=== PATIENT | female | born 2005 | race Caucasian/White ===

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

== ENCOUNTER 2023-01-02 08:19 | Emergency (ER) | payer BC, SELFPAY ==
[2023-01-02 08:26] VITALS: BP 124/87; PULSE 80; RESP 18; TEMP 36.2; O2SAT 97; BMI 31.2
--- NOTE | 2023-01-02 08:47 | ED_ITS ---
HPI - General Adult General Date Seen: 01/02/23 Chief complaint: Allergic Reaction Stated complaint: allergic reaction,rash on skin,shortness of breath Time Seen by Provider: 01/02/23 08:33 Source: patient Mode of arrival: ambulatory Limitations: no limitations History of Present Illness HPI narrative: patient is a 17-year-old here for evaluation of hives. The started night before last. She has them all over her body and they have been persistent. She was seen yesterday in Urgent Care was started on prednisone, it sounds like 40 mg a day for 5 or 7 days, she is not sure. She was also advised to take Benadryl, which she has been taking, 25 mg at a time. She says she is so itchy still that she can not sleep. She does not have any respiratory symptoms specifically. She does have underlying asthma but has not been wheezy. She has not had any facial swelling. She is not aware of any new exposure to anything. She was sick earlier in the month with a vomiting illness but she has recovered and has not had any other viral symptoms. No new medications, foods, no new tattoos. She has never had hives before. She did buy some extra-strength hydrocortisone to use topically but that does not provide any relief from the itching. 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 Denies tobacco or significant other substance use. Here today with dad. Related Data Previous Rx's Medication Instructions Recorded prednisone 20 mg tablet 20 mg PO BID 7 days #14 tabs 01/01/23 Allergies Allergy/AdvReac Type Severity Reaction Status Date / Time cefdinir [From Omnicef] Allergy Mild Hives Verified 01/02/23 08:26 Review of Systems Status of ROS: Reports: 6 or more systems reviewed and unremarkable except as noted in History and below [facility] Medical History Cough ?R05.9 - Cough, unspecified (ICD-10) Hives ?L50.9 - Urticaria, unspecified (ICD-10) Social History Smoking Status: Never smoker Do you use any of these nicotine containing products: None How often do you have a drink containing alcohol: monthly or less How many standard drinks containing alcohol do you have on a typical day: 1 or 2 How often do you have six or more drinks on one occasion: Never AUDIT-C Alcohol total score: 1 Non-prescribed substance use: denies use service: No Exam Narrative: Exam Narrative: Vital signs as noted above. In general, an alert, well-appearing patient. Voice is normal. Head: Normocephalic, atraumatic. Eyes: Pupils are equal reactive. Extraocular movements are full. Conjunctivae are normal. ENT: Mucous membranes are moist. Throat is normal. Neck: Supple without lymphadenopathy. No stridor. Heart: Regular rate and rhythm. No murmur or rub. Lungs: Clear bilaterally. No increased work of breathing, crackles or wheezes. Abdomen: Soft and nontender. No organomegaly. Extremities: Well perfused. No edema. No calf tenderness. Pulses intact. Neurologic: Patient is alert and oriented to person and place. Speech is fluent. Face is symmetric. Moves all extremities equally. Affect: Normal. Skin: Warm and dry. Well perfused. Diffusely scattered hives, some in large patches. legs seem to be most affected, followed by torso. Face not affected. No intraoral lesions. Palms and soles spared. Const: Vital Signs, click to edit/add: Vital Signs - 24 hr 01/02/23 08:26 01/02/23 09:08 Temperature 97.2 F L Pulse Rate [Pulse Oximeter] 80 78 Respiratory Rate 18 18 Blood Pressure [Ri ght Upper Arm] 124/87 106/73 Pulse Oximetry 97 98 Oxygen Delivery Me thod Room Air Documenting provider has reviewed patient's vital signs: yes Course Course Hospital Course: Given how problematic her rashes from a symptomatic standpoint and the fact that she is not having good relief with prednisone and Benadryl, I am going to give her an epi shot here. Discussed with her that that likely will help, but results be short-lived and hives may return. She still interested in trying that as if nothing else that might let her get a few hours of sleep. I would like her to stay on the prednisone, discussed that she can take 50 mg of Benadryl, also could try taking Zyrtec during the day and Benadryl at night if the Benadryl is sedating. We can also add an H2 david to her regimen. Discussed that the hives could be allergic, could also be viral or idiopathic, at this point I do not know for sure why she has hives. If they are persistent, I would recommend that she talk with her primary doctor as a referral to an perennial house manager might be needed at that time. Right now, I do not see any signs suggesting that this is a more severe anaphylactic reaction. She does not have any airway or breathing symptoms, and circulation is normal. I do not think she needs observation after the epinephrine as we are simply treating her hives. If symptoms change, if she develops blistering rash, fever, difficulty breathing, wheezing etcetera return to the emergency department. Otherwise follow-up as outlined above. Vital Signs Vital signs: Initial Vital Signs Temperature 97.2 F L 01/02/23 08:26 Temperature Source Temporal Artery Scan 01/02/23 08:26 Pulse Rate 80 01/02/23 08:26 Respiratory Rate 18 01/02/23 08:26 Blood Pressure 124/87 01/02/23 08:26 Blood Pressure Mean 99 01/02/23 08:26 Blood Pressure Position Sitting 01/02/23 08:26 Pulse Oximetry 97 01/02/23 08:26 Oxygen Delivery Method Room Air 01/02/23 08:26 Vital Signs Temperature 97.2 F L 01/02/23 08:26 Pulse Rate 80 01/02/23 08:26 Respiratory Rate 18 01/02/23 08:26 Blood Pressure 124/87 01/02/23 08:26 Pulse Oximetry 97 01/02/23 08:26 Oxygen Delivery Method Room Air 01/02/23 08:26 Temperature 97.2 F L 01/02/23 08:26 Pulse Rate 78 01/02/23 09:08 Respiratory Rate 18 01/02/23 09:08 Blood Pressure 106/73 01/02/23 09:08 Pulse Oximetry 98 01/02/23 09:08 Oxygen Delivery Method Room Air 01/02/23 08:26 Discharge Plan Discharge Clinical Impression: Hives Patient Disposition: Home, Self-Care Condition: Stable Instructions: Urticaria (ED) Additional Instructions: The reason for your hives is unclear at this time. Hives can be caused by allergies, but also can be caused by viruses, or sometimes can be idiopathic, ca use unknown. For now, we will try and help control the symptoms. Would recommend that you continue with Benadryl, 25-50 mg 3-4 times daily. You can use Zyrtec 10 mg in the morning if Benadryl is sedating, and take 50 mg of Benadryl at bedtime. Continue the prednisone. Can also add an H2 david like Pepcid, which is available [id number]. If symptoms are not resolving over the next few days, I would talk with your primary care doctor and make arrangements to see an perennial house manager. If things worsen and you develop a blistering rash, fever, swelling of your lips or tongue, wheezing, return to the emergency department. Prescriptions: No Action prednisone 20 mg tablet 20 mg PO BID 7 Days Qty: 14 0RF Follow Up/Referrals: May Acuna MD [Primary Care Provider] - Stand Alone Forms: [employer] Info Instructions
[2023-01-02] MEDS: EPINEPHrine 0.3 MG PEN IM (08:59)
[2023-01-02 09:08] VITALS: BP 106/73; PULSE 78; RESP 18; O2SAT 98
== END 2023-01-02 09:19 | disposition home or self-care (01) ==
PROVIDERS: Emergency Provider Emergency Medicine; PCP Pediatrics
DX: L50.9 Urticaria, unspecified (principal)
CPT/HCPCS: 96372; 99283; 99284; J0171

== ENCOUNTER 2023-04-02 15:54 | Emergency (ER) | payer BC, SELFPAY ==
[2023-04-02 15:58] VITALS: BP 122/76; PULSE 83; RESP 18; TEMP 37.1; O2SAT 97; BMI 30.2
--- NOTE | 2023-04-02 17:29 | CRLHL7_ITS ---
For Patients: As a result of the Century Cures Act, medical imaging exams and procedure reports are released immediately into your electronic medical record. You may view this report before your referring provider. If you have questions, please contact your health care provider. CLINICAL HISTORY: Syncope. TECHNIQUE: Standard helical CT image acquisition of the brain was performed. COMPARISON: None available. FINDINGS: There is no intracranial hemorrhage, extra-axial collection, mass effect, or midline shift. Monsivais-white matter differentiation is preserved. The ventricles are normal in size and morphology for patient age. The calvarium is unremarkable. The orbits are unremarkable. The paranasal sinuses are unremarkable. The mastoid air cells are unremarkable. IMPRESSION: No CT evidence of acute intracranial abnormality. Please note that all CT scans at this facility use dose modulation, iterative reconstruction, and/or weight-based dosing when appropriate to reduce radiation dose to as low as reasonably achievable. Dictated by Kris Dickey MD @ 04/02/2023 6:33:58 PM (Electronically Signed)
[2023-04-02 17:57] VITALS: BP 120/70; PULSE 68; RESP 16; TEMP 36.2; O2SAT 98
--- OUTSIDE RECORDS SUMMARY | 2023-04-02 17:59 | XMS_ITS | Continuity of Care Document ---
Author Name Unknown Organization [facility] Address [address] [place] [id number] Phone Care Team Providers Care Quality Compliance Manager Name Role Phone Zeus Queen Unavailable Unavailable Procedures Procedure Date Office/Outpatient Visit,New, Mod 2020 Office/Outpatient Visit,Est, Mod 2020 Advance Directives Directive Yes / No Effective Date File Name No Information Encounters Encounter Description Practice Location Reason(s) For Visit Diagnoses Date Provider Providers Copied on Encounter Office/Outpati ent Visit,[place], [facility] [facility] , [address], [place], [place], [id number], [place] tel:[phone] [facility] Low back pain Rishi Schulz. [address] [place] [address], [id number], . tel:[phone] Referring Provider: Zeus Blackwell D, [address] [place] [address], [id number]. tel:[phone] Family History Family Member Type Diagnosis Age At Onset No Information Payers Payer name Insurance type Covered republican ID Authorgoldena yawken(s) [place] [employer] [place] [id number] Social History Type Description Quantity Date Captured Comments Alcohol Use Details Unknown Caffeine Use Details Unknown Tobacco Use Status Current non-smoker Smoking Status Never smoker Non-Smoking Tobacco Use Details : No Details Available : No Details Available Sex Female Vital Signs Date / Time: Height Weight BMI Pulse Rate Blood Pressure Temperature Respiratory Rate Body Surface Area Head Circumference Head Circ. Percentile Wt./Aidan. Percentile BMI percentile Pulse Ox Inhaled Ox 3:01 PM 61.00 in 79.379 kg (175.00 lbs) 33.0 7 kg/m eter (2) 97 Chief Complaint And Reason For Visit No Information Reason For Referral Reason For Referral No Information Plan Of Treatment Date Type Action Status No Information History Of Present Illness Encounter Date Complaint History Of Prese nt Illness No Information Functional Status Date Functional Assessmen t No Information Instructions Date Instruction Additional Infor mation No Information Assessments Type Assessment Date assessment Low back pain Patient Care Teams Name Effective Dates (start - stop) Status Members No Information
--- OUTSIDE RECORDS SUMMARY | 2023-04-02 17:59 | XMS_ITS | Continuity of Care Document ---
Author Name Unknown Organization [facility] Address [address] [address] [place] [address] Phone Care Team Providers Care Baseball Sewer Hand Name Role Phone Unavailable Unavailable Unavailable Allergies, Adverse Reactions, Alerts Substance Reaction Status Criticality No Known allergies Medications Medication Instructions Dosage Effective Dates (start - stop) Status Comments GlycoLax 17 gram/dose Oral Powder Take 1/2 capful in 4 ounces of fluid every day - Active Procedures Procedure Date Offic Cons New/estab Mod- Advance Directives Directive Yes / No Effective Date File Name No Information Encounters Encounter Description Practice Location Reason(s) For Visit Diagnoses Date Provider Providers Copied on Encounter Offic Cons New/estab Mod- [facility], [address] [address], [place], [place], [id number], [place] tel:[phone] [facility] Constipation unspecified 6200 5 No Information Family History Family Member Type Diagnosis Age At Onset No Information Payers Payer name Insurance type Covered republican ID Authoriza tion(s) [employer] [facility] [id number] Social History Type Description Quantity Date Captured Comments Sex Female Smoking Status No Information Chief Complaint And Reason For Visit No Information Reason For Referral Reason For Referral No Information Plan Of Treatment Date Type Action Status No Information History Of Present Illness Encounter Date Complaint History Of Prese nt Illness No Information Functional Status Date Functional Assessmen t No Information Instructions Date Instruction Additional Infor mation No Information Assessments Type Assessment Date No Information Patient Care Teams Name Effective Dates (start - stop) Status Members No Information
[2023-04-02 18:03] LABS: Basophils Absolute Auto 0.04 K/uL (0.00-0.30); Basophils Percent Auto 0.6 % (0.0-3.0); Eosinophils Absolute Auto 0.12 K/uL (0.00-0.50); Eosinophils Percent Auto 1.7 % (0.0-7.0); Hematocrit 43.2 % (33.0-51.0); Hemoglobin* 14.8 gm/dL (12.0-16.0); Immature Granulocytes Abs Auto 0.01 K/uL (0.00-0.30); Immature Granulocytes Pct Auto 0.1 %; Lymphocytes Absolute Auto 2.33 K/uL (0.90-2.90); Lymphocytes Percent Auto 33.1 % (20-44); Mean Corpuscular HGB Conc 34 gm/dL (32-36); Mean Corpuscular Hemoglobin 32 pg (26-34); Mean Corpuscular Volume 94 fL (80-100); Monocytes Percent Auto 7.4 % (0.0-11.0); Neutrophils Absolute Auto 4.01 K/uL (1.7-7.0); Neutrophils Percent Auto 57.1 % (42.0-72.0); Platelet Count* 288 K/uL (140-440); RDW Coefficient of Variation % 12.6 % (11.5-15.5); Red Blood Count 4.59 m/uL (4.00-5.20); White Blood Count* 7.03 K/uL (4.50-11.00)
[2023-04-02 18:04] LABS: Slide Review Reflex No
[2023-04-02 18:18] LABS: Chloride* 104 mmol/L (96-114); Potassium* 3.9 mmol/L (3.6-5.1); Sodium* 138 mmol/L (135-149)
[2023-04-02 18:21] LABS: Blood Urea Nitrogen* 11 mg/dL (5-24); Carbon Dioxide* 24 mmol/L (20-32); Creatinine* 0.6 mg/dL (0.5-1.5); Est. Creatinine Clearance* 112.86; Estimated Glomerular Filt Rate 132 ml/min
[2023-04-02 18:22] LABS: Calcium* 9.3 mg/dL (8.4-10.6); Glucose* 88 mg/dL (60-115)
--- NOTE | 2023-04-02 18:50 | ED.GENADULT ---
HPI - General Adult General Date Seen: 04/02/23 Chief complaint: Weakness Stated complaint: Loss of vision, tingling in back of head Time Seen by Provider: 04/02/23 16:36 Source: patient Mode of arrival: ambulatory Limitations: no limitations History of Present Illness HPI narrative: Patient is a 18-year-old female who was at work. 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 She felt lightheaded and when she went to stand up she became more lightheaded. She did not actually pass out but felt like she could. Her vision got dark for a few seconds. He tells me that she has both fibromyalgia and an old spinal injury but has not required any treatment for either. She became sweaty after this episode. She has been eating and drinking well. No febrile illness. Related Data Previous Rx's Medication Instructions Recorded sulfamethoxazole 800 1 tab PO BID #20 tabs 03/02/23 mg-trimethoprim 160 mg tablet (Bactrim DS) Allergies Allergy/AdvReac Type Severity Reaction Status Date / Time cefdinir [From Omnicef] Allergy Mild Hives Verified 04/02/23 16:01 Review of Systems Narrative: Review of systems is outlined above otherwise noted to be negative. [facility] Medical History (Updated 04/02/23 @ 18:10 by Guido Latham MD) Ingrown nail of great toe ?L60.0 - Ingrowing nail (ICD-10) Hives ?L50.9 - Urticaria, unspecified (ICD-10) Cough ?R05.9 - Cough, unspecified (ICD-10) Social History Smoking Status: Never smoker Do you use any of these nicotine containing products: None How often do you have a drink containing alcohol: monthly or less How many standard drinks containing alcohol do you have on a typical day: 1 or 2 How often do you have six or more drinks on one occasion: Never AUDIT-C Alcohol total score: 1 Non-prescribed substance use: denies use service: No Exam Narrative: Exam Narrative: Vitals noted. HEENT: Conjunctiva clear. Tympanic membranes are pearly white bilaterally. Posterior pharynx is clear without erythema or exudate. Neck is supple without adenopathy, thyromegaly, carotid bruit. Lungs: Clear to auscultation in all longo. No wheezes, rales, rhonchi. Heart: Regular rate and rhythm without murmur. Abdomen: Soft and nontender. No guarding, rigidity, rebound. Bowel sounds are normal. No palpable masses. Extremities: No cyanosis or edema. Good distal pulses. She has myofascial tightness and tenderness of the left upper back. No palpable spasms. Cervical range of motion is full but there is some discomfort with side bending to the left. Skin: No abnormalities noted of the exposed skin. Neurologic: Awake, alert, fully oriented. Neurologic exam is nonfocal. Const: Vital Signs, click to edit/add: Vital Signs - 24 hr 04/02/23 15:58 04/02/23 17:57 Temperature 98.8 F 97.1 F L Pulse Rate [Right Pulse Oximeter] 83 68 Respiratory Rate 18 16 Blood Pressure [Ri ght Upper Arm] 122/76 120/70 Pulse Oximetry 97 98 Oxygen Delivery Me thod Room Air Room Air Course Course Hospital Course: Patient was seen and examined. Labs and a CT of her head are ordered. She denies a need for any pain medication. Reevaluation(s) Reevaluation #1: CBC, BMP are completely normal. CT of her head is also normal. Vital Signs Vital signs: Initial Vital Signs Temperature 98.8 F 04/02/23 15:58 Temperature Source Temporal Artery Scan 04/02/23 15:58 Pulse Rate 83 04/02/23 15:58 Pulse Rhythm Regular 04/02/23 15:58 Pulse Strength 3+ Normal 04/02/23 15:58 Respiratory Rate 18 04/02/23 15:58 Blood Pressure 122/76 04/02/23 15:58 Blood Pressure Mean 91 04/02/23 15:58 Blood Pressure Position Sitting 04/02/23 15:58 Pulse Oximetry 97 04/02/23 15:58 Oxygen Delivery Method Room Air 04/02/23 15:58 Vital Signs Temperature 98.8 F 04/02/23 15:58 Pulse Rate 83 04/02/23 15:58 Respiratory Rate 18 04/02/23 15:58 Blood Pressure 122/76 04/02/23 15:58 Pulse Oximetry 97 04/02/23 15:58 Oxygen Delivery Method Room Air 04/02/23 15:58 Temperature 97.1 F L 04/02/23 17:57 Pulse Rate 68 04/02/23 17:57 Respiratory Rate 16 04/02/23 17:57 Blood Pressure 120/70 04/02/23 17:57 Pulse Oximetry 98 04/02/23 17:57 Oxygen Delivery Method Room Air 04/02/23 17:57 Medical Decision Making Lab Data Labs: Lab Results 04/02/23 Range/Units 17:58 WBC 7.03 (4.50-11.00) K/uL RBC 4.59 (4.00-5.20) m/uL Hgb 14.8 (12.0-16.0) gm/dL Hct 43.2 (33.0-51.0) % MCV 94 (80-100) fL MCH 32 (26-34) pg MCHC 34 (32-36) gm/dL RDW Coeff of Denilson 12.6 (11.5-15.5) % Plt Count 288 (140-440) K/uL Neut % (Auto) 57.1 (42.0-72.0) % Lymph % (Auto) 33.1 (20-44) % [place] % (Auto) 7.4 (0.0-11.0) % Eos % (Auto) 1.7 (0.0-7.0) % Baso % (Auto) 0.6 (0.0-3.0) % Neut # (Auto) 4.01 (1.7-7.0) K/uL Lymph # (Auto) 2.33 (0.90-2.90) K/uL [place] # (Auto) 0.50 (0.00-0.90) K/UL Eos # (Auto) 0.12 (0.00-0.50) K/uL Baso # (Auto) 0.04 (0.00-0.30) K/uL Sodium 138 (135-149) mmol/L Potassium 3.9 (3.6-5.1) mmol/L Chloride 104 (96-114) mmol/L Carbon Dioxide 24 (20-32) mmol/L BUN 11 (5-24) mg/dL Creatinine 0.6 (0.5-1.5) mg/dL Estimated Creat Clear 112.86 Estimated GFR 132 ml/min Glucose 88 (60-115) mg/dL Calcium 9.3 (8.4-10.6) mg/dL Discharge Plan Discharge Clinical Impression: Muscle strain of left upper back, Postural dizziness with near syncope Patient Disposition: Home, Self-Care Condition: Improved Additional Instructions: Your labs are all reassuring. Stay hydrated. Stand up slowly. Follow up in the clinic if symptoms persist. Use ice, Ibuprofen, massage for your upper back. PT would also be an option if it persists. Activity Level: No Restrictions Discharge Diet: Regular Prescriptions: No Action sulfamethoxazole-trimethoprim [Bactrim DS] 800-160 mg tablet 1 tab PO BID Qty: 20 0RF Follow Up/Referrals: May Acuna MD [Primary Care Provider] - Stand Alone Forms: [facility] [employer] [facility] [employer] Info Instructions
== END 2023-04-02 18:34 | disposition home or self-care (01) ==
PROVIDERS: Emergency Provider Family Medicine; PCP Pediatrics
DX: S29.012A Strain of muscle and tendon of back wall of thorax, initial encounter (principal); R55 Syncope and collapse
CPT/HCPCS: 36415; 70450; 80048; 85025; 99282; 99284

== ENCOUNTER 2023-06-30 09:42 | Outpatient (CLI) | payer BC, SELFPAY ==
--- OUTSIDE RECORDS SUMMARY | 2023-06-30 09:44 | XMS_ITS | Continuity of Care Document ---
Author Name Unknown Organization [facility] Address [address] [place] [phone] Phone Care Team Providers Care Project Executive Name Role Phone Zeus Queen Unavailable Unavailable Procedures Procedure Date Office/Outpatient Visit,New, Mod 2020 Office/Outpatient Visit,Est, Mod 2020 Advance Directives Directive Yes / No Effective Date File Name No Information Encounters Encounter Description Practice Location Reason(s) For Visit Diagnoses Date Provider Providers Copied on Encounter Office/Outpati ent Visit,New, [facility] [place] [facility] , [address], [place], [place], [id number], [place] tel:[phone] [facility] Low back pain Rishi Schulz. [address] [place] [address], [id number], . tel:[phone] Referring Provider: Zeus Blackwell D, [address], [address]. tel:[phone] Family History Family Member Type Diagnosis Age At Onset No Information Payers Payer name Insurance type Covered alliance party ID Authorgoldena gerald(s) [employer] [employer] [place] [id number] Social History Type Description Quantity Date Captured [...] For Referral Reason For Referral No Information History Of Present Illness Encounter Date Complaint History Of Prese nt Illness No Information Functional Status Date Functional Assessmen t No Information Instructions Date Instruction Additional Infor mation No Information Assessments Type Assessment Date assessment Low back pain Patient Care Teams Name Effective Dates (start - stop) Status Members No Information
== END 2023-06-30 09:43 | disposition home or self-care (01) ==
LOC: INJ CL 09:42
PROVIDERS: PCP Pediatrics; Visit Provider Family Medicine
DX: M54.16 Radiculopathy, lumbar region (principal); M51.27 Other intervertebral disc displacement, lumbosacral region
CPT/HCPCS: 62323; J0702; Q9966

== ENCOUNTER 2024-01-04 14:39 | Emergency (ER) | payer BC, SELFPAY ==
[2024-01-04 14:49] VITALS: BP 106/68; PULSE 78; RESP 18; TEMP 36.5; O2SAT 98; BMI 27.8
--- NOTE | 2024-01-04 16:43 | ED_ITS ---
HPI - Back Pain/Injury General Time Seen by Provider: 16:43 Date Seen: 01/04/24 Chief Complaint: Back Injury/Pain Stated Complaint: Fall, back injury Time Seen by Provider: 01/04/24 16:43 Source: patient and RN notes reviewed Mode of arrival: ambulatory Limitations: no limitations History of Present Illness HPI Narrative: This 18-year-old female is coming in with concern of increasing left radiculopathic symptoms, left hip pain. 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 She states she has had epidural injection with Dr. Dickey here a few months ago. She accidentally slipped going back down the stairs at her home, missed the last 3-4 steps and landed on concrete at the base, landing on her buttock. She feels like the left hip is getting bruised, feels increased burning sensation down the back of the leg is also starting to feel that burning type sensation she associates with the nerve pain more on the side of the left leg and wrapping around into the groin. There is no numbness tingling. She has not noted any weakness but it is hurting to walk, she does feel like it hurts in the hip to walk as well. Nothing else was injured, no loss of consciousness. She will be losing her current insurance in a week, does know that she will get this figured out. No bowel or bladder changes. MD elicited complaint: back pain, back injury and fall Pertinent past history: prior back pain Related Data Previous Rx's Medication Instructions Recorded cyclobenzaprine 10 mg tablet 10 mg PO TID PRN muscle spasm #30 01/04/24 tabs prednisone 20 mg tablet 20 mg PO BID #10 tabs 01/04/24 Allergies Allergy/AdvReac Type Severity Reaction Status Date / Time cefdinir [From Omnicef] Allergy Mild Hives Verified 11/20/23 12:55 nickel Allergy Verified 11/20/23 12:55 sodium benzoate Allergy Verified 11/20/23 12:55 Review of Systems Narrative: As per HPI. [facility] Medical History (Updated 01/04/24 @ 18:14 by Zarina Randall MD) Ingrown nail of great toe ?L60.0 - Ingrowing nail (ICD-10) Hives ?L50.9 - Urticaria, unspecified (ICD-10) Cough ?R05.9 - Cough, unspecified (ICD-10) Social History Smoking Status: Never smoker Do you use any of these nicotine containing products: None How often do you have a drink containing alcohol: never How many standard drinks containing alcohol do you have on a typical day: 1 or 2 How often do you have six or more drinks on one occasion: Never AUDIT-C Alcohol total score: 0 Non-prescribed substance use: denies use service: No Exam Const: Vital Signs, click to edit/add: Vital Signs - 24 hr 01/04/24 14:49 Temperature 97.7 F Pulse Rate [Right Pulse Oximeter] 78 Respiratory Rate 18 Blood Pressure [Ri ght Upper Arm] 106/68 Pulse Oximetry 98 Oxygen Delivery Me thod Room Air Patient is alert, interactive, no apparent distress, lying in the exam bed in room 2. No midline tenderness over her spine, no SI joint tenderness. Has some mild tenderness when I palpate over the outside of the left hip, not necessarily over the greater trochanter, maybe is developing some subtle bruising. She has pain when I palpate in the sciatic notch in the left buttock area, see no traumatic changes. Strength is 5/5 and symmetric throughout her hip, lower extremities, ankles and feet. She has normal light touch sensation. She is able to easily get up off the bed, has good forward flexion and rotation of her spine. Do not appreciate any extensive pain on range of motion of her left hip but she does state it hurts to walk/stand on the left hip. Documenting provider has reviewed patient's vital signs: yes Course Course ED Course: Discussed with patient that certainly bruising can cause significant discomfort. She may have caused disc issues with the disc above her current 1, she had wondered that. We discussed starting with plain imaging since her exam is relatively benign, no concerning neurologic changes such as motor bowel/bladder. We will proceed with lumbar spine and left hip. She is in agreement with this. We will discuss medication management once I have seen her images and they have been read by Radiology. Reevaluation(s) Time of Reevaluation #1: 18:07 Reevaluation #1: Reviewed the negative x-rays with patient. She was aware she had some mild scoliosis. Will plan to discharge to home with follow-up with concerns or ongoing issues per Vital Signs Vital signs: Initial Vital Signs Temperature 97.7 F 01/04/24 14:49 Temperature Source Temporal Artery Scan 01/04/24 14:49 Pulse Rate 78 01/04/24 14:49 Respiratory Rate 18 01/04/24 14:49 Blood Pressure 106/68 01/04/24 14:49 Blood Pressure Mean 80 01/04/24 14:49 Blood Pressure Position Sitting 01/04/24 14:49 Pulse Oximetry 98 01/04/24 14:49 Oxygen Delivery Method Room Air 01/04/24 14:49 Vital Signs Temperature 97.7 F 01/04/24 14:49 Pulse Rate 78 01/04/24 14:49 Respiratory Rate 18 01/04/24 14:49 Blood Pressure 106/68 01/04/24 14:49 Pulse Oximetry 98 01/04/24 14:49 Oxygen Delivery Method Room Air 01/04/24 14:49 Temperature 97.7 F 01/04/24 14:49 Pulse Rate 78 01/04/24 14:49 Respiratory Rate 18 01/04/24 14:49 Blood Pressure 106/68 01/04/24 14:49 Pulse Oximetry 98 01/04/24 14:49 Oxygen Delivery Method Room Air 01/04/24 14:49 MDM - Back Pain/Injury Imaging Data XR left hip: Attestation: I have reviewed the pertinent imaging results. My impression: I do not appreciate any acute traumatic change on this pelvis or left hip maikol rain radiology over read. Radiologist's impression: Patient: SELINA MAGAÑA Facility:?[facility] Patient ID:?[id number] Site Patient ID:?[id number]. Site :?2003 Study:?XRay Hip Left W/PELVIS-01/04/2024 5:33:31 PM Ordering Physician:?DAMIEN Final Report: INDICATION: Trauma. TECHNIQUE: Left hip and pelvis radiographs, 3 views. COMPARISON: None. FINDINGS: No acute fractures or dislocation. The femoral heads maintain normal sphericity. There are normal anatomic alignment with the acetabulum bilaterally. The acetabulum appear unremarkable. No diastasis of the pubic symphysis. Moderate rectal stool burden. The joint spaces are preserved. No significant joint effusion. No significant soft tissue edema or radiopaque foreign bodies. IMPRESSION: No acute fractures or dislocation. Dictated by José Miguel Lee MD @ 01/04/2024 6:00:31 PM (Electronic Signature) XR lumbar spine: Attestation: I have reviewed the pertinent imaging results. My impression: Can see some mild curvature, no acute traumatic change seen, await radiology reading. Radiologist's impression: Patient: SELINA MAGAÑA Facility:?[facility] Patient ID:?[id number] Site Patient ID:?[id number] Site :?2003 Study:?XRay Spine Lumbar 3V-01/04/2024 5:34:37 PM Ordering Physician:CHANI Final Report: INDICATION: Trauma. TECHNIQUE: Lumbar spine radiographs, 3 views. COMPARISON: None. FINDINGS: Normal lumbar lordosis. Mild levoscoliosis of the mid lumbar spine. The vertebral body heights are maintained. The intervertebral disc spaces are preserved. No acute fractures or traumatic subluxation of the lumbar spine. Minimal facet degeneration at L4-5 and L5-S1. Unremarkable bowel gas pattern. The visualized sacroiliac joints are unremarkable. IMPRESSION: No acute fractures or traumatic subluxation of the lumbar spine. Dictated by José Miguel Lee MD @ 01/04/2024 6:03:40 PM (Electronic Signature) Critical Care Time Critical Care Time Critical Care Time: No Discharge Plan Discharge Clinical Impression: Lumbar radiculopathy, Acute pain of left hip Fall Qualifiers: Encounter type: initial encounter Qualified Code(s): W19.XXXA - Unspecified fall, initial encounter Patient Disposition: Home, Self-Care Condition: Stable Instructions: Acute Low Back Pain (ED), Lumbar Radiculopathy (ED), Hip Pain (ED) Additional Instructions: Continue with conservative management with ice the next couple days, can move to ice heat cycles after that. Tylenol and ibuprofen per bottle directions baseline for pain management. We will send in a prescription of prednisone to be used if you feel that the lumbar radiculopathy is worsening. Will also send in prescription for muscle relaxant to be used as needed, do not recommend driving or operating machinery if it does make you sedated. Follow-up with Dr Dickey if you have ongoing issues. Activity Level: Activity as Tolerated Prescriptions: New prednisone 20 mg tablet 20 mg PO BID Qty: 10 0RF cyclobenzaprine 10 mg tablet 10 mg PO TID PRN (Reason: muscle spasm) Qty: 30 0RF Follow Up/Referrals: May Acuna MD [Primary Care Provider] - Stand Alone Forms: [facility] Info Instructions
--- NOTE | 2024-01-04 16:56 | XR_ITS ---
Patient: SELINA MAGAÑA Facility:?[facility] Patient ID:?[id number] Site Patient ID:?[id number] Site :?2003 Study:?XRay-Spine Lumbar 3V-01/04/2024 5:34:37 PM Ordering Physician:CHANI Final Report: INDICATION: Trauma. TECHNIQUE: Lumbar spine radiographs, 3 views. COMPARISON: None. FINDINGS: Normal lumbar lordosis. Mild levoscoliosis of the mid lumbar spine. The vertebral body heights are maintained. The intervertebral disc spaces are preserved. No acute fractures or traumatic subluxation of the lumbar spine. Minimal facet degeneration at L4-5 and L5-S1. Unremarkable bowel gas pattern. The visualized sacroiliac joints are unremarkable. IMPRESSION: No acute fractures or traumatic subluxation of the lumbar spine. Dictated by José Miguel Lee MD @ 01/04/2024 6:03:40 PM Signed by:?José Miguel Lee MD @01/04/2024 6:03:40 PM (Electronic Signature)
--- NOTE | 2024-01-04 16:56 | XR_ITS ---
Patient: SELINA MAGAÑA Facility:?[facility] Patient ID:?[id number] Site Patient ID:?[id number]. Site :?2003 Study:?XRay-Hip Left W/PELVIS-01/04/2024 5:33:31 PM Ordering Physician:CHANI Final Report: INDICATION: Trauma. TECHNIQUE: Left hip and pelvis radiographs, 3 views. COMPARISON: None. FINDINGS: No acute fractures or dislocation. The femoral heads maintain normal sphericity. There are normal anatomic alignment with the acetabulum bilaterally. The acetabulum appear unremarkable. No diastasis of the pubic symphysis. Moderate rectal stool burden. The joint spaces are preserved. No significant joint effusion. No significant soft tissue edema or radiopaque foreign bodies. IMPRESSION: No acute fractures or dislocation. Dictated by José Miguel Lee MD @ 01/04/2024 6:00:31 PM Signed by:?José Miguel Lee MD @01/04/2024 6:00:31 PM (Electronic Signature)
== END 2024-01-04 18:21 | disposition home or self-care (01) ==
PROVIDERS: Emergency Provider Family Medicine; PCP Pediatrics
DX: M54.16 Radiculopathy, lumbar region (principal); W10.9XXA Fall (on) (from) unspecified stairs and steps, initial encounter
CPT/HCPCS: 72100; 73502; 99283

== ENCOUNTER 2024-03-06 12:01 | Emergency (ER) | payer BC, SELFPAY ==
[2024-03-06 12:17] VITALS: BP 115/71; PULSE 69; RESP 18; TEMP 36.6; O2SAT 98; BMI 27.4
--- NOTE | 2024-03-06 12:21 | ED.GENADULT ---
HPI - General Adult General Date Seen: 03/06/24 Chief complaint: Abdominal Pain Stated complaint: UTI, vomiting Time Seen by Provider: 03/06/24 12:16 History of Present Illness HPI narrative: 19-year-old female with a history of left hip pain (possibly radiculopathy), previous history of hives, presenting to the ER today for nausea and vomiting, dysuria and urinary urgency. She notes that she has had symptoms of dysuria and urgency for about a month or so. They have been waxing and waning. She has been trying to treat them at home with azo and with cranberry. However they keep coming back. They are more prevalent this morning. Also today she has had several episodes of nonbilious, nonbloody vomiting. She is not sure if the vomiting is because she did have 2 alcoholic beverages yesterday and the hangover or if this issue related to some sort of worsening infection. She is not having any fever. No diarrhea. No flank pain. No abdominal pain but she felt slightly bloated before she vomited. She does not think she is . Her last menstrual cycle was about 3 and half weeks ago. . Has historically been a bit irregular. She is not currently having any bleeding. She is sexually active but uses condoms for protection. She has 1 partner, male. He it does not know of any STDs, but she notes that sometimes min may have an STD with no symptoms. She does not have any specific concerned that she may have an STD but wonders if it is possible her boyfriend might have unknowingly given her chlamydia. She is not having any discharge. No vaginal blisters that she is aware of. Related Data Previous Rx's ?Medication ?Instructions ?Recorded cyclobenzaprine 10 mg tablet 10 mg PO TID PRN muscle spasm #30 01/04/24 tabs prednisone 20 mg tablet 20 mg PO BID #10 tabs 01/04/24 nitrofurantoin 100 mg PO BID #6 caps 03/06/24 monohydrate/macrocrystals 100 mg capsule (Macrobid) ondansetron HCl 4 mg tablet 4 mg PO Q8H PRN nausea and 03/06/24 vomiting #10 tabs Allergies Allergy/AdvReac Type Severity Reaction Status Date / Time cefdinir [From Omnicef] Allergy Mild Hives Verified 11/20/23 12:55 nickel Allergy Verified 11/20/23 12:55 sodium benzoate Allergy Verified 11/20/23 12:55 [facility] Medical History (Updated 03/06/24 @ 14:07 by Zeus Jewell MD) Ingrown nail of great toe ?L60.0 - Ingrowing nail (ICD-10) Hives ?L50.9 - Urticaria, unspecified (ICD-10) Cough ?R05.9 - Cough, unspecified (ICD-10) Social History Smoking Status: Never smoker Do you use any of these nicotine containing products: None How often do you have a drink containing alcohol: never How many standard drinks containing alcohol do you have on a typical day: 1 or 2 How often do you have six or more drinks on one occasion: Never AUDIT-C Alcohol total score: 0 Non-prescribed substance use: denies use service: No Exam Narrative: Exam Narrative: Constitutional: Appears well-developed and well-nourished. Alert. Conversant. Pleasant. Non toxic. HENT: Head: Atraumatic. Nose: Nose normal. Mouth/Throat: Oral mucosa is clear and moist. no trismus. Pharynx normal. Eyes: Conjunctivae normal. EOM normal. Pupils equal, round, and reactive to light. No scleral icterus. Neck: Normal range of motion. Neck supple. No tracheal deviation present. Cardiovascular: Normal rate, regular rhythm. No gallop. No friction rub. No murmur heard. Symmetric radial artery pulses Pulmonary/Chest: Effort normal. No stridor. No respiratory distress. No wheezes. No rales. No rhonchi . No tenderness. Abdominal: Soft. Bowel sounds normal. No distension. No mass. No tenderness. No rebound. No guarding. No CVA tenderness. Musculoskeletal: RUE: Normal range of motion. No tenderness. No deformity LUE: Normal range of motion. No tenderness. No deformity RLE: Normal range of motion. No edema. No tenderness. No deformity LLE: Normal range of motion. No edema. No tenderness. No deformity Neurological: Alert and oriented to person, place, and time. Normal strength. CN II-VII intact. No sensory deficit. GCS eye subscore is 4. GCS verbal subscore is 5. GCS motor subscore is 6. Normal coordination Skin: Skin is warm and dry. No rash noted. No pallor. Normal capillary refill. Psychiatric: Normal mood. Normal affect. Const: Vital Signs, click to edit/add: Vital Signs - 24 hr 03/06/24 12:17 Temperature 98 F Pulse Rate [Pulse Oximeter] 69 Respiratory Rate 18 Blood Pressure [Le ft Upper Arm] 115/71 Pulse Oximetry 98 Oxygen Delivery Me thod Room Air Course Course ED Course: Recheck-nausea doing better after Zofran. Tolerating PO. Produced urine. Vital Signs Vital signs: Initial Vital Signs Temperature 98 F 03/06/24 12:17 Temperature Source Temporal Artery Scan 03/06/24 12:17 Pulse Rate 69 03/06/24 12:17 Pulse Rhythm Regular 03/06/24 12:17 Respiratory Rate 18 03/06/24 12:17 Blood Pressure 115/71 03/06/24 12:17 Blood Pressure Mean 85 03/06/24 12:17 Blood Pressure Position Supine 03/06/24 12:17 Pulse Oximetry 98 03/06/24 12:17 Oxygen Delivery Method Room Air 03/06/24 12:17 Vital Signs Temperature 98 F 03/06/24 12:17 Pulse Rate 69 03/06/24 12:17 Respiratory Rate 18 03/06/24 12:17 Blood Pressure 115/71 03/06/24 12:17 Pulse Oximetry 98 03/06/24 12:17 Oxygen Delivery Method Room Air 03/06/24 12:17 Temperature 98 F 03/06/24 12:17 Pulse Rate 69 03/06/24 12:17 Respiratory Rate 18 03/06/24 12:17 Blood Pressure 115/71 03/06/24 12:17 Pulse Oximetry 98 03/06/24 12:17 Oxygen Delivery Method Room Air 03/06/24 12:17 Medical Decision Making MDM Narrative Medical decision making narrative: This patient presents for evaluation of about a month long history of urinary urgency, dysuria, and suprapubic pain notable when her bladder is full. This clinically is consistent with a urinary tract infection. She did have an at home kkzc-bko-dfmlzda test strip that indicated she had a UTI. She has been trying to treat with gbfr-wss-tiuuayh home remedies such as cranberry. Today she came to the ER because she also developed nausea and vomiting this morning (unclear if it is related to the infection or not, because she did have 2 alcoholic beverages last night). We did obtain urinalysis. test is negative. Urinalysis looks surprisingly normal. No nitrite, bacteria, pyuria. Nonetheless with clinical symptoms of UTI I have high pretest probability if there is an active infection. Also consider possible vaginitis as a cause for symptoms. She is sexually active but uses condoms, with 1 partner. She has no specific concern for STI but does note that min sometimes can have asymptomatic chlamydia and spread it to their partners. She would agree to do vaginitis and STI testing. We discussed options for testing and she elected to vaginal self swab which is been obtained and sent to the lab. Overall we have low clinical suspicion that she truly has chlamydia or gonorrhea so would hold off on empiric therapy for now. Discussed that pelvic exam would be the more sensitive way to look for vaginal blisters or lesions for herpes, which she declines for now. There has been no fever, back/flank pain or significant abdominal pain. At this point I do not think she needs laboratory workup or advanced imaging such as pelvic ultrasound. There is no clinical evidence of pyelonephritis, appendicitis, colitis, diverticulitis or any intraabdominal catastrophe. The patient will be started on antibiotics for the infection Macrobid for 100 mg b.i.d. for 3 days. Zofran that she can use p.r.n. for nausea.. Return if increasing pain, vomiting, fever, or inability to tolerate the oral antibiotic. Follow up with primary physician is indicated if not improving in 3-4 days. Lab Data Labs: Lab Results 03/06/24 Range/Units 13:33 Urine Color Yellow (Yellow) Urine Appearance Clear (Clear) Urine pH 8.5 (5.0-8.5) Ur Specific [place] 1.015 (1.000-1.030) Urine Protein Negative (Negative) Urine Glucose (UA) Negative (Negative) Urine Ketones Negative (Negative) Urine Blood Negative (Negative) Urine Nitrite Negative (Negative) Urine Bilirubin Negative (Negative) Urine Urobilinogen 0.2 (0.2-1.0) Ur Leukocyte Esterase Negative (Negative) Urine RBC 0-2 (0-2) Urine WBC 0-2 (0-5) Ur Squamous Epith Cells Few (None-Few) Urine Bacteria Few A (None) Urine HCG, Qual Negative (Negative) Discharge Plan Discharge Clinical Impression: Dysuria, Vomiting Patient Disposition: Home, Self-Care Condition: Stable Instructions: Acute Nausea and Vomiting (DC), Dysuria (ED) Additional Instructions: As we discussed, your urine sample actually looks normal today. We are awaiting on the urine culture to see if there are any bacteria in your urine. However, we are going to treat with a course of antibiotics for bladder infection. The results of your other swabs are not back yet. If these swabs come back showing an infection, the ER will call you. If you have worsening symptoms or any problems such as fever, uncontrolled vomiting, worsening pain, vaginal discharge, weakness, back pain or flank pain, or if you have any other problems come back to the ER right away Please recheck with your regular doctor within the next 3-4 days. Prescriptions: New nitrofurantoin monohyd/m-cryst [Macrobid] 100 mg capsule 100 mg PO BID Qty: 6 0RF Rx Instructions: must administer with a meal/food ondansetron HCl 4 mg tablet 4 mg PO Q8H PRN (Reason: nausea and vomiting) Qty: 10 0RF No Action prednisone 20 mg tablet 20 mg PO BID Qty: 10 0RF cyclobenzaprine 10 mg tablet 10 mg PO TID PRN (Reason: muscle spasm) Qty: 30 0RF Follow Up/Referrals: May Acuna MD [Primary Care Provider] - Stand Alone Forms: MyHealth Info Instructions
--- OUTSIDE RECORDS SUMMARY | 2024-03-06 12:49 | XMS_ITS | Continuity of Care Document ---
Author Organization [facility] Address [address] [place] [address] Phone Care Team Providers Care Production Material Coordinator Name Role Phone Zeus Queen Unavailable Unavailable Procedures Procedure Date Office/Outpatient Visit,New, Mod 2020 Office/Outpatient Visit,Est, Mod 2020 Advance Directives Directive Yes / No Effective Date File Name No Information Encounters Encounter Description Practice Location Reason(s) For Visit Diagnoses Date Provider Providers Copied on Encounter Office/Outpati ent Visit,New, Mod [facility] , [address], [place], [place], [id number], [place] tel:[phone] [facility] back pain Rishi Schulz. [address] [place] [address], [id number], [place]. tel:[phone] Referring Provider: Zeus Salvador, [address], [address]. tel:[phone] Family History Family Member Type Diagnosis Age At Onset No Information Payers Payer name Insurance type Covered alliance party ID Authoriza tion(s) No Information Social History Type Description Quantity Date Captured [...]
--- OUTSIDE RECORDS SUMMARY | 2024-03-06 12:49 | XMS_ITS ---
Author Organization [facility] Address [address] [place] [address] Care Team Providers Care Hotel Supplies Salesperson Name Role Phone Unavailable Unavailable Unavailable Surgery Details Not on file Complications Check Surgery Details section. Procedure Estimated Blood Loss Check Surgery Details section. Procedure Findings Check Surgery Details section. Procedure Specimens Taken Check Surgery Details section.
--- OUTSIDE RECORDS SUMMARY | 2024-03-06 12:49 | XMS_ITS | Clinical Summary ---
Author Organization [facility] Address [facility] [place] [address] Care Team Providers Care Hide Inspector And Sorter Name Role Phone May Acuna MD Primary Care Provider Allergies Active Allergy Reactions Criticality Noted Date Comments Cefdinir Hives 12/17/2020 Medications Medication Sig Dispensed Refills Start Date End Date Status naproxen sodium 220 MG capsule Take 220 mg by mouth 2 times daily (with meals) Active methylphenidate (RITALIN LA) 10 MG 24 hr capsule Take 10 mg by mouth Active Active Problems No known active problems Social History Tobacco Use Types Packs/Day Years Used Date Smoking Tobacco: Never Assessed PHQ-2 Answer Date Recorded PHQ-2 Score 3 12/17/2020 Adolescent Education Answer Date Record ed Getting School Help Needed Not on file 07/04 Sex and Gender Information Value Date Recorded Sex Assigned at Not on file Gender Identity Not on file Sexual Orientation Not on file Last Filed Vital Signs Vital Sign Reading Time Taken Comments Blood Pressure 109/74 12/17/2020 3:09 PM SYSTEMS SUPPORT OFFICER Pulse 81 12/17/2020 3:09 PM SYSTEMS SUPPORT OFFICER Temperature - - Respiratory Rate - - Oxygen Saturation - - Inhaled Oxygen Concentration - - Weight 77.5 kg (170 lb 13.7 oz) 12/17/2020 3:09 PM SYSTEMS SUPPORT OFFICER Height 155.5 cm (5' 1.22) 12/17/2020 3:09 PM CS T Body Mass Index 32.05 12/17/2020 3:09 PM SYSTEMS SUPPORT OFFICER Plan of Treatment Not on file Care Teams Hide Inspector And Sorter Relationship Specialty Start Date End Date [place] [address] PCP - General Pediatrics 12/17/20
--- OUTSIDE RECORDS SUMMARY | 2024-03-06 12:49 | XMS_ITS | Continuity of Care Document ---
Author Organization [facility] Address [address] [address] [place] [address] Phone Care Team Providers Care Financial Economist Name Role Phone Unavailable Unavailable Unavailable Allergies, [...] Copied on Encounter Offic Cons New/estab Mod- [facility], [address] [address], [place], [place], [id number], [place] tel:[phone] [facility] Constipation unspecified [phone] No Information Family History Family Member Type Diagnosis Age At Onset No Information Payers Payer name Insurance type Covered republican ID Authoriza tion(s) [employer] [facility] [id number] Social History Type Description Quantity Date Captured [...]
--- OUTSIDE RECORDS SUMMARY | 2024-03-06 12:49 | XMS_ITS | Clinical Summary ---
Author Organization [facility] Address [address] [place] [address] Care Team Providers Care Nursery Supervisor Name Role Phone Elsewhere, Pcp Primary Care Provider Unavailabl e Source Comments Patient records contain information from all sites at [facility]. For routine questions regarding patient records, call [phone] during business hours, M-F 8:00 AM - 5:00 PM Central Time. Record requests for emergency care only can be directed to [phone] at any time.[facility] Allergies Active Allergy Reactions Criticality Noted Date Comments Cefdinir Hives (Reselect Reaction) 07/30/2007 Sodium Benzoate Hives (Reselect Reaction) High 10/12 Medications Medication Sig Dispensed Refills Start Date End Date Status albuterol 90 mcg/actuation inhaler Inhale 1-2 puffs every 4 (four) hours as needed. 10/25/2021 Active fluticasone propion-salmeteroL 250-50 mcg/dose diskus inhaler Inhale 1 puff 2 (two) times a day as needed. 09/20/2020 Active clindamycin (CLEOCIN T) 1 % external solution Apply topically. 07/20/2017 Active FLUoxetine (PROzac) 40 mg capsule Take 40 mg by mouth daily. 03/24/2022 Active hydrOXYzine (ATARAX) 10 mg tablet Take 10 mg by mouth daily as needed. 03/24/2022 Active Concerta 18 mg CR tablet Take 1 tablet by mouth daily. Used mostly during school 03/24/2022 Active Active Problems Problem Noted Date Diagnosed Date Asthma NOS 02/09/2017 Overview: Asthma NOS Immunizations Name Administration Dates Next Due 4vHPV (discontinued) 05/07/2015 DTaP ([employer], [employer]) 01/04/2008,,2003,2003, H1N1 All Forms 09/14/2009 HepA Pediatric/Adolescent 05/07/2015,03/17/2012 HepB, Unspecified 06/05/2004,2003,04/04/20 03,2003 Hib, Unspecified 06/05/2004,2003, 3,2003 IPV 01/04/2008,06/05/2004,2003 ,2003 Influenza, Unspecified 09/05/2014,2008,08/30/2008,08/03/2008,,10/15/2006 MCV4 (Menactra)(Discontinued) 05/07/2015 MMR 01/04/2008,01/22/2004 PCV13 07/26/2004,2003,2003 ,2003 Tdap 05/07/2015 RIANNA 01/04/2008,01/22/2004 Family History Medical History Relation Name Comments Ankylosing spondylitis Father Heart disease Grandfather Paternal Asthma Grandmother Paternal Fibromyalgia Grandmother Paternal Arthritis Mother Relation Name Status Comments Father Grandfather Paternal Grandmother Paternal Mother Social History Tobacco Use Types Packs/Day Years Used Date Smoking Tobacco: Never Smokeless Tobacco: Never Alcohol Use Standard Drinks/Week Comments Not Currently 0 (1 standard drink = 0.6 oz pur e alcohol) Humiliation, Afraid, Rape, and Kick questionnair e Answer Date Recorded Within the last year, have y ou been afraid of your partner or ex-partner? No 04/01/2022 Within the last year, have y ou been humiliated or emotionally abused in other ways by your partner or ex-partner? No Within the last year, have y ou been kicked, hit, slapped, or otherwise physically hurt by your partner or ex-partner? No 04/01/2022 Within the last year, have y ou been raped or forced to have any kind of sexual activity by your partner or ex-partner? No 04/01/2022 Social Connection and Isolation Panel [NHANES] A nswer Date Recorded In a typical week, how many times do you talk on the phone with family, friends, or neighbors? Three times a week 04/01/2022 How often do you get togethe r with friends or relatives? Once a week 04/01/2022 How often do you attend chur ch or sabianism services? Never 04/01/2022 Do you belong to any clubs o r organizations such as worship groups, unions, fraternal or athletic groups, or school groups? No 04/01/2022 How often do you attend meet ings of the clubs or organizations you belong to? Never 04/01/2022 Are you , , di vorced, , never , or living with a partner? Never 04/01/2022 AUDIT-C Answer Date Recorded Q1: How often do you have a drink containing alc ohol? Never 04/01/2022 Average Number of Drinks Not on file 022 Frequency of Binge Drinking Not on file 03/13 Overall Financial Resource Strain (CARDIA) Answe r Date Recorded How hard is it for you to pa y for the very basics like food, housing, medical care, and heating? Not hard at all 04/01/2022 PHQ-2 Answer Date Recorded PHQ-2 Score 1 06/24/2022 [facility] - Occupational Stress Questionnaire Answer Date Recorded Do you feel stress - tense, restless, nervous, or anxious, or unable to sleep at night because your mind is troubled all the time - these days? Very much 04/01/2022 Exercise Vital Sign Answer Date Recorde d On average, how many days pe r week do you engage in moderate to strenuous exercise (like a brisk walk)? 2 days 04/01/2022 On average, how many minutes do you engage in exercise at this level? 20 min 04/01/2022 Hunger Vital Sign Answer Date Recorded Within the past 12 months, y ou worried that your food would run out before you got the money to buy more. Never true 04/01/20 22 Within the past 12 months, t he food you bought just didn't last and you didn't have money to get more. Never true 04/01/2022 PRAPARE - Transportation Answer Date Re corded In the past 12 months, has l ack of transportation kept you from medical appointments or from getting medications? No 03/13 In the past 12 months, has l ack of transportation kept you from meetings, work, or from getting things needed for daily living? No 04/01/2022 Housing Stability Vital Sign Answer Vikash e Recorded In the last 12 months, was t here a time when you were not able to pay the mortgage or rent on time? No 04/01/2022 In the last 12 months, how many places have you lived? 1 04/01/2022 In the last 12 months, was t here a time when you did not have a steady place to sleep or slept in a penitentiary (including now)? No 04/01/2022 Depression Answer Date Recor ded PHQ-9 Total Score (max 27) 8 06/24 Nutrition Answer Date Recorded Nutrition: EVOO Fat Source Yes 04/01 On average, how many serving s of fruits and vegetables do you eat per day (serving size is equal to 1 cup or approximately the size of a tennis ball)? 0-1 04/01/2022 Dental Answer Date Recorded Dental: Regular Dentist Yes 04/01/20 Employment Answer Date Recorded Employment status Working with temporary restric tions 04/01/2022 Education Answer Date Recorded What is the highest level of school you have completed or the highest degree you have received? 12th grade 04/01/2022 Sex and Gender Information Value Date Recorded Sex Assigned at Female 04/01/2022 7:43 AM CDT Gender Identity Female 04/01/2022 7:43 AM CDT Sexual Orientation Straight 04/01/2022 7: 43 AM CDT Last Filed Vital Signs Vital Sign Reading Time Taken Comments Blood Pressure 119/73 07/23/2022 11:16 AM CDT Pulse 64 07/23/2022 11:16 AM CDT Temperature 36.7 ??C (98.1 ??F) 07/23/2022 1 0:50 AM CDT Respiratory Rate - - Oxygen Saturation 100% 07/23/2022 11: 16 AM CDT Inhaled Oxygen Concentration - - Weight 83.4 kg (183 lb 15.6 oz) 04/01/2022 8:22 AM CDT Height 158.6 cm (5' 2.44) 04/01/2022 8:22 AM CD T Body Mass Index 33.18 04/01/2022 8:22 AM CDT Plan of Treatment Health Maintenance Due Date Last Done Comments Cervical Cancer Screening 2003 Chlamydia and Gonorrhea Screening 2003 HIV Screening 2003 Hepatitis C Screening 2003 1 week Well Child Check-Up 2003 1 month Well Child Check-Up 2003 2 month Well Child Check-Up 2003 4 month Well Child Check-Up 2003 6 month Well Child Check-Up 2003 9 month Well Child Check-Up 2003 12 month Well Child Check-Up 2003 15 month Well Child Check-Up 03/22/2004 18 month Well Child Check-Up 06/22/2004 2 year Well Child Check-Up 12/20/2004 30 month Well Child Check-Up 06/22/2005 3 year Well Child Check-Up 12/20/2005 Well Child Check-Up Completed in Past Year 12/20/2005 4 year Well Child Check-Up 12/20/2006 5 year Well Child Check-Up 12/21/2007 6 year Well Child Check-Up 12/20/2008 Pneumococcal vaccine (0-64 years) (1 of 1 - PPSV23 or PCV20) 2009 07/26/2004, 2003, 2003, Additional history exists 7 year Well Child Check-Up 12/20/2009 8 year Well Child Check-Up 12/20/2010 9 year Well Child Check-Up 12/21/2011 10 year Well Child Check-Up 12/20/2012 11 year Well Child Check-Up 12/20/2013 12 year Well Child Check-Up 12/20/2014 HPV Vaccines (2 - 2-dose series) 11/07/2015 05/07/2015, 05/07/2015 13 year Well Child Check-Up 12/21/2015 14 year Well Child Check-Up 12/20/2016 15 year Well Child Check-Up 12/20/2017 14 year Well Child Check-Up 12/20/2018 15 year Well Child Check-Up 12/21/2019 Asthma Action Plan 08/16/2020 Asthma Control Test Questionnaire 08/16/2020 02/09/2017 Asthma Management/Exacerbation Questionnaire (AMQ/AEQ) 08/16/2020 16 year Well Child Check-Up 12/20/2020 19 year Well Child Check-Up 12/20/2021 20 year Well Child Check-Up 12/20/2022 COVID-19 Vaccine ( season) 2023 03/21/2021, 02/28/2021 Influenza Vaccine (#1) 2023 4, 09/14/2009, 08/30/2008, Additional history exists Depression Screening (Annual PHQ-2) 10/12/2023 19 year Well Child Check-Up 12/21/2023 Well Child Check-Up ([facility]) 12/21/2023 DTaP,Tdap,and Td Vaccines (7 - Td or Tdap) 05/07/2025 05/07/2015, 01/04/2008, 06/05/2004, Additional history exists Hepatitis B Vaccines Completed 06/05/2004, 06/05/2004, 2003, Additional history exists Meningococcal Vaccine Aged Out 05/07/2015 No james jonathan eligible based on patient's age to complete this topic Care Teams Nursery Supervisor Relationship Specialty Start Date End Date Elsewhere, Pcp PCP - General Internal Medicine 03/28/22
--- OUTSIDE RECORDS SUMMARY | 2024-03-06 12:49 | XMS_ITS | Clinical Summary ---
Author Organization [employer] [facility] Address [place], [place] [address] Care Team Providers Care Staff Mechanical Engineer Name Role Phone May Acuna MD Primary Care Provi roland Allergies Active Allergy Reactions Criticality Noted Date Comments Cefdinir Hives High 07/30/2007 Sodium Benzoate Hives High 10/12/2020 Medications Medication Sig Dispensed Refills Start Date End Date Status traZODone (DESYREL) 50 mg tabletIndications:Soc ial anxiety disorder,Recurrent major depressive disorder, in partial remission (HC),Sleep difficulties Take 0.5-1 tablets by mouth at bedtime. 30 tablet 2 10/21/2019 Active escitalopram oxalate (LEXAPRO) 10 mg tablet 03/07/2020 Active prazosin (MINIPRESS) 1 mg capsule TK 1 C PO HS 05/02/2020 Active fluticasone propion-salmeteroL (ADVAIR DISKUS) 250-50 mcg/Dose diskus inhalerIndications:Mi ld persistent asthma without complication Inhale 1 Puff by mouth 2 times daily. 1 Inhaler 09/20/2020 Active traMADoL (ULTRAM) 50 mg tablet Take by mouth every 6 hours if needed. 09/27/2020 Active methylphenidate HCl (RITALIN LA) 10 mg SR capsule Take 10 mg by mouth. Active FLUoxetine (PROZAC) 20 mg capsule Take 20 mg by mouth once daily. 06/26/2021 Active Concerta 18 mg Extended-Release tablet 10/21/2021 Active albuterol HFA (PRO-AIR; VENTOLIN; PROVENTIL) 90 mcg/actuation inhalerIndications:Mi ld intermittent asthma with acute exacerbation Inhale 1-2 Puffs by mouth every 4 hours if needed for Shortness of Breath 1st choice or Wheezing 2nd choice (cough). 1 Each 1 10/25/2021 Active methylPREDNISolone (Medrol, Ra,) 4 mg tabletIndications:Lum bar radiculopathy Take by mouth as instructed per packaging. 21 Tablet 06/02/2023 Active Active Problems Problem Noted Date Diagnosed Date Mild intermittent asthma with acute exacerbation 10/25/2021 HLA B27 (HLA B27 positive) 11/20/2020 Recurrent major depressive disorder, in partial remission 08/26/2018 Social anxiety disorder 07/22/2018 Current moderate episode of major depressive disorder without prior episode 07/22/2018 Controlled substance agreement signed 07/22/2018 Overview: 07/22/18 signed .Farzana Jennings DNP, ROUGE MILLER, PICK PULLING MACHINE OPERATOR/psychiatry ADHD (attention deficit hyperactivity disorder) 09/05/2014 Unspecified constipation 05/11/2007 Resolved Problems Problem Noted Date Diagnosed Date Resolved Date Mild persistent asthma without complication 02/09/2017 05/12/2019 Overview: Overview: Asthma NOS Unspecified disturbance of conduct 06/17/2007 07/22/2018 Encounters Date Type Department Care Team Description 01/04/2024 Orders Only [facility] Scanner 1 scan: (1-Ord) [facility], LT HIP MIN 2V, 01/04/2024 01/04/2024 Orders Only [facility] [facility] Scanner 1 scan: (1-Ord) [facility], SPINE LUMBAR 3V, 01/04/2024 from Last 3 Months Immunizations Name Administration Dates Next Due COVID-19 vaccine (Wallmob NTERN 30mcg/0.3mL) PF, MDV 03/21/2021,02/28/2021 DTaP 01/04/2008, 4,2003,05/23,2003 HIB PRP-OMP (PedvaxHIB) 06/05/2004,07/31,2003,04/04 HPV 9 (Gardasil 9) 05/07/2015 Hepatitis A (Peds) 05/07/2015,03/17/2012 Hepatitis B (Peds) 06/05/2004, 3,2003,01/20 Inactivated Polio Vaccine 01/04/2008,,2003,05/23,2003 Influenza A (H1N1), Inactiva nika (Age >=3 Years) 09/14/2009 Influenza, IIV3 (Age >=3 years) 09/14/20 09,08/30/2008,08/03/2008,08/12,10/15/2006,09/19/2005 Influenza, IIV4 09/05/2014 MMR 01/04/2008,01/22/2004 Meningococcal Vaccine (Menveo) 05/07/2015 Pneumococcal conj 7-Valent (Prevnar 7) 1 ,2003,2003,04/04 Tdap 05/07/2015 Varicella Vaccine 01/04/2008,01/22/2004 Family History Medical History Relation Name Comments Other Father Jeremy HLA-B27 Alcohol/Drug Mother Nora Heart Disease Paternal Grandfather Asthma Paternal Grandmother Other Paternal Grandmother fibromy algia Relation Name Status Comments Brother Alive half Father Jeremy Alive Maternal Grandfather Alive Maternal Grandmother Alive Mother Nora Alive Paternal Grandfather Alive Paternal Grandmother Alive Social History Tobacco Use Types Packs/Day Years Used Date Smoking Tobacco: Never Smokeless Tobacco: Never Tobacco Cessation:Counseling Given: Yes Comments:no exposure Alcohol Use Standard Drinks/Week Comments No 0 (1 standard drink = 0.6 oz pur e alcohol) PHQ-2 Answer Date Recorded PHQ-2 TOTAL SCORE 3 10/25/2021 Social Connections Answer Date Recorded Frequency of Communication with Friends and Fami ly 0 06/02/2023 Financial Resource Strain Answer Date R ecorded Difficulty of Paying Living Expenses 3 06/02/2023 Difficulty of Paying Living Expenses Not on file 06/02/2023 Food Insecurity Answer Date Recorded Worried About Running Out of Food in the Last Ye ar 1 06/02/2023 Transportation Needs Answer Date Record ed Lack of Transportation (Medical) 1 06/02/2023 Housing Stability Answer Date Recorded Unable to Pay for Housing in the Last Year 1 06/02/2023 Sex and Gender Information Value Date Recorded Sex Assigned at Not on file Gender Identity Not on file Sexual Orientation Not on file Obstetrics History Para Term AB IAB SAB Ectopic Multiple Livin g Live Births 0 0 0 0 0 0 0 0 0 0 0 Last Filed Vital Signs Vital Sign Reading Time Taken Comments Blood Pressure 132/75 07/13/2023 7:49 AM CDT Pulse 72 07/13/2023 7:49 AM CDT Temperature 36.9 ??C (98.4 ??F) 07/13/2023 7:49 AM CD T Respiratory Rate 20 06/02/2023 9:14 AM CDT Oxygen Saturation 99% 07/13/2023 7:49 AM CDT Inhaled Oxygen Concentration - - Weight 72.8 kg (160 lb 6.4 oz) 06/11/2023 3:06 P M CDT shoes on Height 157.4 cm (5' 1.97) 06/02/2023 9:14 AM CD T Body Mass Index - - Plan of Treatment Health Maintenance Due Date Last Done Comments HPV series for age 9-26 (2 - 2-dose series) 11/07/2015 05/07/2015 HIV for age 15-65 2018 Chlamydia for age 16-24 09/19/2020 09/19/2019 Hepatitis C screening for age 18-79 2021 Depression screening for age 12+ 10/25/2022 10/25/2021, 05/03/2020, 05/02/2020, Additional history exists COVID-19 vaccine series ( season) 2023 03/21/2021, 02/28/2021 Pap test for age 21-65 01/21/2024 BMI (ht and wt on same day) for age 18+ 06/02/2024 06/02/2023, 04/09/2021 Influenza for age 9-49 06/12/2024 4, 09/14/2009, 09/14/2009, Additional history exists Tetanus booster 05/07/2025 05/07/2015 Pneumococcal series for age 6-64 Aged Out 07/26/2004, 2003, 2003, Additional history exists No longer eligible based on patient's age to complete this topic Meningococcal series for age 11-21 Aged Out 05/07/2015 No longer eligible based on patient's age to complete this topic Tdap Completed 05/07/2015 Procedures Procedure Name Priority Date/Time Associated Diagnosis Comments SCAN-RADIOLOGY REPORT 01/04/2024 12:00 AM CDT SCAN-RADIOLOGY REPORT 01/04/2024 12:00 AM CDT GC CHLAMYDIA TRACH PROBE Routine 09/19/2019 1:05 PM SUBSTATION OPERATOR AUTOMATIC Screening for STD (sexually transmitted disease) from Last 3 Months or Most Recently Relevant to Health Maintenance Results * SCAN-RADIOLOGY REPORT (01/04/2024 12:00 AM CDT) Only the most recent of2 resultswithin the time period is included. Anatomical Region Laterality Modality Other Scanner OTHER * GC CHLAMYDIA TRACH PROBE (09/19/2019 1:05 PM SUBSTATION OPERATOR AUTOMATIC) CHLAMYDIA PROBE Negative 2:23 PM SUBSTATION OPERATOR AUTOMATIC [facility] N GONORRHOEAE PROBE Negative 09/21/2019 2:23 PM SUBSTATION OPERATOR AUTOMATIC [facility] Other URINE SPECIMEN / Unknown Non-Blood / Unknown 09/19/2019 1:05 PM SUBSTATION OPERATOR AUTOMATIC 09/19/2019 1:05 PM SUBSTATION OPERATOR AUTOMATIC May Acuna MD MICROBIOLOG Y [facility] [address] [place] [address], [place] from Last 3 Months or Most Recently Relevant to Health Maintenance Care Teams Staff Mechanical Engineer Relationship Specialty Start Date End Date May Acuna MD [address] [place] [address] PCP - General Pediatric 07/22/18
--- OUTSIDE RECORDS SUMMARY | 2024-03-06 12:49 | XMS_ITS | Referral Summary ---
Author Organization [facility] Address [address] [place] [address] Care Team Providers Care Pitch Worker Name Role Phone Elsewhere, Pcp Primary Care Provider Unavailabl e Source Comments Patient records contain information from all sites at [facility]. For routine questions regarding patient records, call [phone] during business hours, M-F 8:00 AM - 5:00 PM Central Time. Record requests for emergency care only can be directed to [phone] at any time.[facility] Allergies Active Allergy Reactions Criticality Noted Date [...] PCV13 07/26/2004,2003,2003 ,2003 Tdap 05/07/2015 RIANNA 01/04/2008,01/22/2004 Social History Tobacco Use Types Packs/Day Years [...] often do you attend chur ch or mormon services? Never 04/01/2022 Do you belong to any clubs o r organizations such as gnosticist groups, unions, fraternal or athletic groups, or [...] Answer Date Recorded PHQ-2 Score 1 06/24/2022 [facility] - Occupational Stress [...] place to sleep or slept in a halfway (including now)? No 04/01/2022 Depression Answer Date [...] Date Recorded Employment status Working with temporary [employer] 04/01/2022 Education Answer Date Recorded What is [...] 04/01/2022 8:22 AM CDT Plan of Treatment Not on file Care Teams Pitch Worker Relationship Specialty Start Date End Date Elsewhere, Pcp PCP - General Internal Medicine 03/28/22
--- OUTSIDE RECORDS SUMMARY | 2024-03-06 12:49 | XMS_ITS | Referral Summary ---
Author Organization [place] Address [facility] [place] [address] Care Team Providers Care Research Hydraulic Engineer Name Role Phone May Acuna MD Primary Care Provider [phone] Allergies Active Allergy Reactions Criticality Noted Date [...] Comments Blood Pressure 109/74 12/17/2020 3:09 PM SALES OPERATIONS LEAD Pulse 81 12/17/2020 3:09 PM SALES OPERATIONS LEAD Temperature - - Respiratory Rate - - Oxygen Saturation - - Inhaled Oxygen Concentration - - Weight 77.5 kg (170 lb 13.7 oz) 12/17/2020 3:09 PM SALES OPERATIONS LEAD Height 155.5 cm (5' 1.22) 12/17/2020 3:09 PM CS T Body Mass Index 32.05 12/17/2020 3:09 PM SALES OPERATIONS LEAD Plan of Treatment Not on file Care Teams Research Hydraulic Engineer Relationship Specialty Start Date End Date May Acuna MD [address] [place] [address] PCP - General Pediatrics 12/17/20
[2024-03-06 13:40] LABS: Appearance Urine Clear (Clear); Bilirubin Urine Negative (Negative); Blood Urine Negative (Negative); Color Urine Yellow (Yellow); Glucose Urine Negative (Negative); Ketones Urine Negative (Negative); Leukocyte Esterase Urine Negative (Negative); Nitrite Urine Negative (Negative); Protein Urine Negative (Negative); Specific Gravity Urine 1.015 (1.000-1.030); Urobilinogen Urine 0.2 (0.2-1.0); pH Urine 8.5 (5.0-8.5)
[2024-03-06 13:44] LABS: Ur HCG Qualitative* Negative (Negative)
[2024-03-06 13:46] LABS: RBC Urine 0-2 (0-2); Squamous Epithelial Cell Urine Few (None-Few); WBC Urine 0-2 (0-5)
[2024-03-06 13:47] LABS: Bacteria Urine Few
[2024-03-06 14:38] LABS: Bacterial Vaginosis* Negative (Negative); Candida glab/krus NOT DETECTED (No Detected); Candida species NOT DETECTED (No Detected); Trichomonas vaginalis NOT DETECTED (No Detected)
[2024-03-06 15:09] LABS: GC DNA Amplified* NOT DETECTED (No Detected)
[2024-03-06 15:32] LABS: Chlamydia DNA Amplified* DETECTED (No Detected)
== END 2024-03-06 14:21 | disposition home or self-care (01) ==
PROVIDERS: Emergency Provider Emergency Medicine; PCP Pediatrics
DX: A74.9 Chlamydial infection, unspecified (principal); R30.0 Dysuria; R11.10 Vomiting, unspecified
CPT/HCPCS: 81001; 81025; 81513; 87086; 87481; 87491; 87591; 87661; 99282; 99283

== ENCOUNTER 2025-06-03 18:04 | Emergency (ER) | payer BC, SELFPAY ==
--- OUTSIDE RECORDS SUMMARY | 2025-06-03 18:07 | XMS_ITS | Clinical Summary ---
Author Organization [place] Address [facility] [place] [address] Care Team Providers Care Pipe Fitter Apprentice Name Role Phone May Acuna MD Primary Care Provider [phone] Allergies Active Allergy Reactions Criticality Noted Date Comments Cefdinir Hives 12/17/2020 Medications naproxen sodium 220 MG capsule Take 220 [...] School Help Needed Not on file 07/04 Comments Unknown Sex and Gender Information Value Date Recorded Sex Assigned at Not on file Legal Sex Female 2:59 PM SIGN LANGUAGE TRANSLATOR Gender Identity Not on file Sexual Orientation Not on file Last Filed Vital Signs Vital Sign Reading Time Taken Comments Blood Pressure 109/74 12/17/2020 3:09 PM SIGN LANGUAGE TRANSLATOR Pulse 81 12/17/2020 3:09 PM SIGN LANGUAGE TRANSLATOR Temperature - - Respiratory Rate - - Oxygen Saturation - - Inhaled Oxygen Concentration - - Weight 77.5 kg (170 lb 13.7 oz) 12/17/2020 3:09 PM SIGN LANGUAGE TRANSLATOR Height 155.5 cm (5' 1.22) 12/17/2020 3:09 PM CS T Body Mass Index 32.05 12/17/2020 3:09 PM SIGN LANGUAGE TRANSLATOR Plan of Treatment Not on file Care Teams Pipe Fitter Apprentice Relationship Specialty Start Date End Date May Acuna MD [address] [place] [address] [place] [address] PCP - General Pediatrics 12/17/20
--- OUTSIDE RECORDS SUMMARY | 2025-06-03 18:07 | XMS_ITS | Clinical Summary ---
Author Organization [employer] [facility] Address [address] [place] [address] Care Team Providers Care Dictaphone Mechanic Name Role Phone Lianne Rosales DO Primary Care Provider [phone] Allergies Active Allergy Reactions Criticality Noted Date Comments Cefdinir Hives High 07/30/2007 Sodium Benzoate Hives High 10/12/2020 Medications albuterol HFA (PRO-AIR; VENTOLIN; PROVENTIL) 90 mcg/actuation inhalerIndication s:Mild intermittent asthma with acute exacerbation (HC) Inhale 1-2 Puffs by mouth every 4 hours if needed for Shortness Of Breath or Wheezing (cough). 8 g 3 4 Active DULoxetine (CYMBALTA) 30 mg Delayed-release capsuleIndication s:Mild episode of recurrent major depressive disorder,MAYTE (generalized anxiety disorder),Other chronic pain Take 1 Capsule (30 mg) by mouth once daily. 90 Capsule 5 Active cyclobenzaprine (FLEXERIL) 5 mg tabletIndications :Upper back pain on right side Take 1-2 tablets at bedtime as needed for muscle spasm 30 Tablet 5 Active Active Problems Problem Noted Date Diagnosed Date Atypical squamous cells of u ndetermined significance (ASCUS) on Papanicolaou smear of cervix 10/14/2024 Overview (10/14/2024): 09/2024 ASCUS Pap due in 12 months Mild intermittent asthma with acute exacerbation 10/25/2021 HLA B27 (HLA B27 positive) 11/20/2020 Recurrent major depressive disorder, in partial remission 08/26/2018 Social anxiety disorder 07/22/2018 ADHD (attention deficit hyperactivity disorder) 09/05/2014 Resolved Problems Problem Noted Date Diagnosed Date Resolved Date Controlled substance agreement signed 07/22/2018 08/24/2024 Overview (07/22/2018): 07/22/18 signed .Farzana Jennings DNP, WORKERS' COMPENSATION HEARINGS OFFICER, SANDWICH PEDDLER/psychiatry Mild persistent asthma without complication 02/09/2017 05/12/2019 Overview (09/30/2017): Overview: Asthma NOS Unspecified disturbance of conduct 06/17/2007 07/22/2018 Unspecified constipation 05/11/2007 Encounters Date Type Department Care Team Description 05/23/[address] [address] Lianne Rosales, DO Referral 05/22/2025 3:15 PM CDT Office Visit [facility] [address] [place] [address] Lianne Rosales, Follow Up (chronic back pain, feels like pain is migrating up spine; would like a more exterminator plan of pain management.); Form ('s note from missed shift on 05/21 d/t pain) 05/22/2025 Travel 05/08/2025 2:10 PM CDT Office Visit [facility] [address] [place] [address] Socorro Barbosa, Back Pain (Right side back pain starts mid-back and goes up the neck started worsening a month ago. ) 05/08/2025 Travel 05/08/2025 Nurse Triage [facility] [address] [place] [address] Lianne Rosales, Chest Pain; Back Pain from Last 3 Months Immunizations Immunization Administration Dates Next Due COVID-19 vaccine (The Gluten Free G[employer] 30mcg/0.3mL) PF, V 03/21/2021,02/28/2021 DTaP 01/04/2008, 4,2003,05/23,2003 HIB PRP-OMP (PedvaxHIB) 06/05/2004,07/31,2003,04/04 HPV 9 (Gardasil 9) 09/30/2024,05/07/2015 Hepatitis A (Peds) 05/07/2015,03/17/2012 Hepatitis B (Peds) 06/05/2004, 3,2003,01/20 Inactivated Polio Vaccine 01/04/2008,,2003,05/23,2003 Influenza A (H1N1), Inactiva nika (Age >=3 Years) 09/14/2009 Influenza, IIV3 (Age >=3 years) 09/14/20 09,08/30/2008,08/03/2008,08/12,10/15/2006,09/19/2005 Influenza, IIV4 09/05/2014 MENINGOCOCCAL VACCINE 2 VIAL 2MO-55YO (MENVEO) 05/07/2015 MMR 01/04/2008,01/22/2004 Pneumococcal conj 7-Valent (Prevnar 7) 1 ,2003,2003,04/04 Tdap 05/07/2015 Varicella Vaccine 01/04/2008,01/22/2004 Family History Medical History Relation Name Comments Rheum arthritis Father Jeremy Alcohol/Drug Mother Nora Heart Disease Paternal Grandfather Asthma Paternal Grandmother Relation Name Status Comments Brother Alive half Father Jeremy Alive Maternal Grandfather Alive Maternal Grandmother Alive Mother Nora Alive Paternal Grandfather Alive Paternal Grandmother Alive Social History Tobacco Use Types Packs/Day Years Used Date Smoking Tobacco: Never Smokeless Tobacco: Never Tobacco Cessation:Counseling Given: No Comments:no exposure Alcohol Use Standard Drinks/Week Comments Yes 1 (1 standard drink = 0.6 oz pur e alcohol) PHQ-2 Answer Date Recorded PHQ-2 TOTAL SCORE 2 08/24/2024 Social Connections Answer Date Recorded Do you often feel lonely or isolated from those around you? 0 08/24/2024 Financial Resource Strain Answer Date R ecorded Difficulty of Paying Living Expenses 3 08/24/2024 Difficulty of Paying Living Expenses Not on file 08/24/2024 Food Insecurity Answer Date Recorded Do you worry your food will run out before you are able to buy more? 1 08/24/2024 Transportation Needs Answer Date Record ed Does lack of transportation keep you from medica l appointments? 1 08/24/2024 Does lack of transportation keep you from work, meetings or getting things that you need? 1 08/24/2024 Housing Stability Answer Date Recorded What is your housing situation today? 1 08/24/2024 Utilities Answer Date Recorded Do you have trouble paying f or utilities (for example, heat, electricity, water, phone)? 1 08/24/2024 Comments No Sex and Gender Information Value Date Recorded Sex Assigned at Not on file Legal Sex Female 7:04 AM MAIL CARRIER Gender Identity Not on file Sexual Orientation Not on file Travel History Travel Start Travel End [place] 05/13/2025 05/20/2025 Obstetrics History Para Term AB IAB SAB Ectopic Multiple Livin g Live Births 0 0 0 0 0 0 0 0 0 0 0 Last Filed Vital Signs Vital Sign Reading Time Taken Comments Blood Pressure 119/74 05/22/2025 3:10 PM CDT Pulse 57 05/22/2025 3:10 PM CDT Temperature 36.4 C (97.5 F) 09/22/2024 11:05 AM MAIL CARRIER Respiratory Rate 20 06/02/2023 9:14 AM CDT Oxygen Saturation 96% 05/08/2025 2:21 PM CDT Inhaled Oxygen Concentration - - Weight 67.6 kg (149 lb) 05/22/2025 3:10 PM CDT Height 156 cm (5' 1.42) 09/30/2024 3:22 PM MAIL CARRIER Body Mass Index 27.77 09/30/2024 3:22 PM MAIL CARRIER Plan of Treatment Upcoming Encounters Date Type Department Care Team (Late st Contact Info) Description 07/27/2025 3:00 PM CDT Office Visit [facility] [address] [address] [place] [address] [place] [address] Health Maintenance Due Date Last Done Comments HIV for age 15-65 2018 Hepatitis C screening for age 18-79 2021 COVID-19 vaccine series (2023- season) 2024 03/21/2021, 02/28/2021 Tetanus booster 05/07/2025 05/07/2015 Influenza Vaccine (#1) 2025 4, 09/14/2009, 08/30/2008, Additional history exists Depression screening for age 12+ 08/24/2025 08/24/2024, 10/25/2021, 05/03/2020, Additional history exists BMI (ht and wt on same day) for age 18+ 09/30/2025 09/30/2024, 06/02/2023, 04/09/2021 Chlamydia for age 16-24 09/30/2025 09/30/20 24, 03/06/2024 (Verified in Care Everywhere or Patient Record), 09/19/2019 Pap test for age 21-65 09/30/2025 09/30/2024 Hepatitis B series for 19+ Completed 06/05, 2003, 2003, Additional history exists Pneumococcal series for age 6-49 Aged Out 07/26/2004, 2003, 2003, Additional history exists No longer eligible based on patient's age to complete this topic HPV series for age 9-26 Completed 09/30/2024, 05/07 Procedures Procedure Name Priority Date/Time Associated Diagnosis Comments GC CHLAMYDIA TRACH PROBE Routine 09/30/2024 4:08 PM MAIL CARRIER Screening examination for STI REGISTERED ROUTE ASSOCIATE THIN PREP PAP SCREEN IMAGED Routine 09/30/2024 4:08 PM MAIL CARRIER Screening for cervical cancer from Last 3 Months or Most Recently Relevant to Health Maintenance Results * (ABNORMAL) REGISTERED ROUTE ASSOCIATE THIN PREP PAP SCREEN IMAGED [[id number]] (09/30/2024 4:08 PM MAIL CARRIER) Case Report Gynecologic Cytology Report Case: [id number] Authorizing Provider: Lianne Rosales DO Collected: 09/30/2024 1608 Ordering Location: [facility] Received: 09/30/2024 1608 Clinic First Screen: Lakesha Sharma Pathologist: Alanna Engle MD Specimen: REGISTERED ROUTE ASSOCIATE ThinPrep Vial Screening, Cervical 10/14/2024 7:11 AM MAIL CARRIER [facility] [employer] [facility] INTERPRETATION/ RESULT ATYPICAL SQUAMOUS CELLS OF UNDETERMINED SIGNIFICANCE (ASCUS)(A) (none) 10/14/2024 7:11 AM MAIL CARRIER [facility] at 0711 MAIL CARRIER SPECIMEN ADEQUACY Satisfactory for evaluation Endocervical component present 10/14/2024 7:11 AM MAIL CARRIER [facility] [employer] [facility] Date of LMP 09/23/2024 10/14/2024 7:11 AM MAIL CARRIER [facility] Last Pap Date first 10/14/2024 7:11 AM MAIL CARRIER [facility] Last Pap Result First Pap/Unknown 10/14/2024 7:11 AM MAIL CARRIER [facility] Abnormal Pap or [place] Bx in last 5 years No 10/14/2024 7:11 AM MAIL CARRIER [facility] Menstrual Status Regular Periods 10/14/2024 7:11 AM MAIL CARRIER [facility] EN[facility] [place] Bx Done Today No 10/14/2024 7:11 AM MAIL CARRIER [facility] Additional Information None given 10/14/2024 7:11 AM MAIL CARRIER [facility] Comment: Cytology is screened at [facility] - [address], [place] [address] and [facility] - [address], [place] [address] and [facility] - [address] [place] [address] Interpreted at [facility] Laboratory - [address], [place] [address] Automated Review Successful 10/14/2024 7:11 AM MAIL CARRIER [facility] Comment:Specimen processed s uccessfully by automated cylinder tester device, ThinPrep Imaging System, [employer] Note The pap test is a screening technique, not a diagnostic procedure. It is used primarily to screen for squamous cancers and precursor lesions. Published studies have shown that it is subject to both false negative and false positive results. The pap test should not be used as the sole means to diagnose or exclude pre-malignant and malignant lesions. 10/14/2024 7:11 AM MAIL CARRIER [facility] Other (Cervical) Non-Blood / Unknown 09/30/2024 4:08 PM MAIL CARRIER 09/30/2024 4:08 PM MAIL CARRIER [facility] Priyanka Rosales DO PATHOLOGY/CYTOLOGY Final R esult Performing Organization Address [facility]/ZIP Co de Phone Number [facility] [address] [place] [phone], * GC & CHLAMYDIA DNA PCR [[id number]] (09/30/2024 4:08 PM MAIL CARRIER) CHLAMYDIA PROBE Negative 3:16 PM MAIL CARRIER [facility] N GONORRHOEAE PROBE Negative 10/01/2024 3:16 PM MAIL CARRIER [facility] Other VAGINAL SWAB / Unknown Non-Blood / Unknown 09/30/2024 4:08 PM MAIL CARRIER 09/30/2024 4:08 PM MAIL CARRIER Lianne Rosales DO MICROBIOLOGY Final Resu lt Performing Organization Address City/[facility]/ZIP Co de Phone Number [facility] [address] [address], from Last 3 Months or Most Recently Relevant to Health Maintenance Insurance * Guarantor: Mariluz Wesley Account Type Relation to Patient Date of Phone Billing Address Personal/Family Self 2005 [address] [place] [address] [facility] [employer] Care Teams Dictaphone Mechanic Relationship Specialty Start Date End Date Lianne Rosales DO [address] [place] [address] PCP - General Family Practice 08/24/24
[2025-06-03 18:51] VITALS: BP 136/96; PULSE 85; RESP 24; TEMP 37.1; O2SAT 97; BMI 28.5
--- NOTE | 2025-06-03 19:03 | ED.GENADULT ---
HPI - General Adult General Chief complaint: Back Injury/Pain Stated complaint: Potential Herniated disc Time Seen by Provider: 06/03/25 18:47 Source: patient Mode of arrival: ambulatory Limitations: no limitations History of Present Illness HPI narrative: 20-year-old female coming in today complaining of low back pain. States that the pain started on , 2 days ago. She states that she was stepping out of her car and felt a sudden sharp pain in his been unbearable since. She has a hard time walking, sitting reduce generally doing her daily activities. The pain is in low back radiates up the spine and down both legs. She describes as a sharp shooting pain down both legs. She denies any loss of bowel or bladder control. No fevers or chills. No nausea or vomiting. No direct trauma to her back. She did not fall when she felt this pain. She states that she had a very similar episode happened in 2020 and had physical therapy afterwards. She states that ever since then she has back pain on and off but never quite this bad. She states that she has also been diagnosed with fibromyalgia. She has been taking cyclobenzaprine which makes her very sleepy but does not help with her discomfort. Related Data Home Medications ?Medication ?Instructions ?Recorded ?Confirmed duloxetine 30 mg capsule,delayed mg PO DAILY 11/18/24 11/18/24 release albuterol sulfate 90 mcg/actuation 1 - 2 puff inhalation Q4H PRN 06/03/25 06/03/25 aerosol inhaler (Ventolin HFA) wheezing cyclobenzaprine 5 mg tablet 5 - 10 mg PO QPM PRN muscle spasm 06/03/25 06/03/25 Previous Rx's ?Medication ?Instructions ?Recorded ketorolac 10 mg tablet 10 mg PO TID 5 days #15 tabs 06/03/25 methylprednisolone 4 mg tablets in See Rx Instructions PO .COMPLEX 06/03/25 a dose pack (Medrol (Ra)) #21 ea Allergies Allergy/AdvReac Type Severity Reaction Status Date / Time cefdinir (From Omnicef) Allergy Mild Hives Verified 11/18/24 18:25 nickel Allergy Verified 11/18/24 18:25 sodium benzoate Allergy Verified 11/18/24 18:25 Review of Systems Status of ROS: Reports: 10 or more systems reviewed and unremarkable except as noted in History and below [facility] Medical History Ingrown nail of great toe ?L60.0 - Ingrowing nail (ICD-10) Hives ?L50.9 - Urticaria, unspecified (ICD-10) Cough ?R05.9 - Cough, unspecified (ICD-10) Social History Smoking Status: Never smoker Do you use any of these nicotine containing products: None How often do you have a drink containing alcohol: never How many standard drinks containing alcohol do you have on a typical day: 1 or 2 How often do you have six or more drinks on one occasion: Never AUDIT-C Alcohol total score: 0 Non-prescribed substance use: denies use service: No Exam Narrative: Exam Narrative: Well-nourished well-developed patient , appears uncomfortable. Alert and oriented. Answers questions appropriately. Mood and affect are appropriate. Thoughts are goal oriented and rational. No tangential or magical thinking noted. Patient speaks in full sentences without needing to catch her breath. HEENT: Normocephalic atraumatic. Pupils are equally round reactive to light. Extraocular muscles are intact. Conjunctivae are moist without any icterus noted. Back: Normal appearance. No tenderness of the thoracic or lumbar spine. Paraspinal musculature of the thoracic and lumbar spine are very tight and uncomfortable to palpation. No pain in the buttocks region or the coccyx. Straight leg test is negative. Strength is 5/5 of the lower extremities, both proximal and distal muscle groups. There is no footdrop. Normal reflexes at both knees. Const: Vital Signs, click to edit/add: Vital Signs - 24 hr 06/03/25 18:51 Temperature 98.7 F Pulse Rate [Pulse Oximeter] 85 Respiratory Rate 24 Blood Pressure [Ri ght Upper Arm] 136/96 H Pulse Oximetry 97 Oxygen Delivery Me thod Room Air Course Course ED Course: 60 mg of IM Toradol given in the ER today. Vital Signs Vital signs: Initial Vital Signs Temperature 98.7 F 06/03/25 18:51 Temperature Source Temporal Artery Scan 06/03/25 18:51 Pulse Rate 85 06/03/25 18:51 Respiratory Rate 24 06/03/25 18:51 Blood Pressure 136/96 H 06/03/25 18:51 Blood Pressure Mean 109 H 06/03/25 18:51 Pulse Oximetry 97 06/03/25 18:51 Oxygen Delivery Method Room Air 06/03/25 18:51 Vital Signs Temperature 98.7 F 06/03/25 18:51 Pulse Rate 85 06/03/25 18:51 Respiratory Rate 24 06/03/25 18:51 Blood Pressure 136/96 H 06/03/25 18:51 Pulse Oximetry 97 06/03/25 18:51 Oxygen Delivery Method Room Air 06/03/25 18:51 Temperature 98.7 F 06/03/25 18:51 Pulse Rate 85 06/03/25 18:51 Respiratory Rate 24 06/03/25 18:51 Blood Pressure 136/96 H 06/03/25 18:51 Pulse Oximetry 97 06/03/25 18:51 Oxygen Delivery Method Room Air 06/03/25 18:51 Medical Decision Making MDM Narrative Medical decision making narrative: 20-year-old female with low back pain, muscle spasm likely. Potential for herniated disc although less likely given the location of her pain. Go ahead and treat her with Toradol and a Medrol Dosepak. She already has cyclobenzaprine. She states that she has an appointment with a bait painter in July. Recommend she follow up with primary care next week. Discharge Plan Discharge Clinical Impression: Lumbar radiculopathy Patient Disposition: Home, Self-Care Condition: Stable Instructions: Acute Low Back Pain (ED) Additional Instructions: Use heat and ice per instructions Okay to use Tylenol 1000 mg 3 times a day as needed. Use Toradol with meals as needed/as directed for pain management-do not mix with ibuprofen. Take all steroid as prescribed. Follow-up with your primary care provider this coming week. Prescriptions: New ketorolac 10 mg tablet 10 mg PO TID 5 Days Qty: 15 0RF methylprednisolone [Medrol (Ra)] 4 mg tablets,dose pack See Rx Instructions .ROUTE .COMPLEX Qty: 21 0RF Rx Instructions: orally per package directions No Action duloxetine 30 mg capsule,delayed release(DR/EC) PO DAILY cyclobenzaprine 5 mg tablet 5 - 10 mg PO QPM PRN (Reason: muscle spasm) albuterol sulfate [Ventolin HFA] 90 mcg/actuation HFA aerosol inhaler 1 - 2 puff INHALATION Q4H PRN (Reason: wheezing) Follow Up/Referrals: Lianne Rosales DO [Primary Care Provider, Family Practice] Stand Alone Forms: [facility] Info Instructions
== END 2025-06-03 19:23 | disposition home or self-care (01) ==
PROVIDERS: Emergency Provider Family Medicine; PCP Family Medicine
DX: M54.16 Radiculopathy, lumbar region (principal)
CPT/HCPCS: 96372; 99283; 99284; J1885